=== PATIENT | male | born 1980 | race African-American/Black ===

== ENCOUNTER 2017-05-05 09:34 | Emergency (ER) | payer SELFPAY ==
[~2017-05-05] VITALS: Ht 180.3 cm; Wt 150.0 kg
[2017-05-05 09:36] VITALS: TEMP 98.4
[2017-05-05] MEDS ORDERED: ZOFRAN 4MG T4 MG/TAB PO (10:19)
[2017-05-05 10:39] VITALS: BP 134/85; PULSE 89
== END 2017-05-05 10:41 | disposition home or self-care (01) ==
LOC: COL.ER 09:34
DX: K52.9 Noninfective gastroenteritis and colitis, unspecified (principal)

== ENCOUNTER 2017-05-26 08:16 | Emergency (ER) | payer SELFPAY ==
[~2017-05-26] VITALS: Ht 182.9 cm; Wt 150.0 kg
[~2017-05-26 08:16] MED LIST: ZOFRAN 4MG T4 MG/TAB PO
[2017-05-26 08:18] VITALS: BP 141/80; PULSE 96; TEMP 98.3
== END 2017-05-26 09:35 | disposition home or self-care (01) ==
LOC: COL.ER 08:16
DX: R11.2 Nausea with vomiting, unspecified (principal); R19.7 Diarrhea, unspecified